=== PATIENT | male | born 1985 | race African-American/Black ===

== ENCOUNTER 2023-03-09 17:30 | Emergency (ER) | payer SELFPAY ==
--- NOTE | 2023-03-09 18:11 | EKG ---
Test Date: 2023-03-09 Test Time: 17:55:19 Varnisher: ERICK MEASUREMENT RESULTS: Intervals: Rate: 80 [place]: 160 QRSD: 78 QT: 370 QTc: 426 [place]: P: 77 [place]: 160 QRS: 64 T: 46 INTERPRETIVE STATEMENTS: Normal sinus rhythm Right atrial enlargement Borderline ECG No previous ECG available for comparison Electronically Signed On 03-09-23 18:01:48 CDT by Abel Lu
--- NOTE | 2023-03-09 18:51 | RAD REPORT ---
EXAM DESCRIPTION: Jayesh Single View03/09/2023 6:30 pm CLINICAL HISTORY: Chest pain COMPARISON: none FINDINGS: The lungs appear clear of acute infiltrate. The heart is normal size IMPRESSION: No acute abnormalities displayed
[2023-03-09 19:40] LABS: Absolute Lymphocytes (CBC) 2.5 K/uL (0.7-4.9); Hematocrit 50.9 % (39.6-49.0); Lymphocytes % 47.3 % (15.3-44.8); MCV 86.8 fL (80-100); MPV 8.1 fL (7.6-11.3); Platelets 191 thou/uL (152-406); RBC Red Blood Cell Count 5.86 M/uL (4.33-5.43)
[2023-03-09] MEDS ORDERED: MAGNES/ALUMIN/SIMET 30ML UCUP ONE (19:55)
[2023-03-09] MEDS ORDERED: KETOROLAC 30 MG/ML INJ ONE (19:55)
[2023-03-09 20:00] LABS: Bilirubin Direct 0.2 mg/dL (0-0.2); Bilirubin Indirect, Calculated 0.8 mg/dL (0.2-0.8); Magnesium 2.1 mg/dL (1.6-2.4); Potassium 3.4 mEq/L (3.5-5.1); Protein, Total 7.8 g/dL (6.4-8.2)
[2023-03-09 20:21] LABS: Protime INR 1.09
[2023-03-09] MEDS ORDERED: NA CHLORIDE 0.9% 1,000 ML ONE (20:49)
--- NOTE | 2023-03-09 21:11 | RAD REPORT ---
EXAM DESCRIPTION: CT - Chest Abd Pelvis Wo Con - 03/09/2023 8:53 pm CLINICAL HISTORY: Chest and abdominal pain. Back pain COMPARISON: None TECHNIQUE: Computed axial tomography of the chest, abdomen and pelvis was obtained. Oral contrast wa s given. IV contrast was not requested. All CT scans are performed using dose optimization technique as appropriate and may include automated exposure control or mA/KV adjustment according to patient size. FINDINGS: The evaluation of mediastinum, simon, vessels and solid organs is limited secondary to the lack of IV contrast administration The lungs are clear No mediastinal or hilar lymphadenopathy is seen. A pleural effusion is not present. A pericardial effusion is not seen. The liver, spleen, pancreas, adrenals and kidneys appear grossly normal There is no evidence of diverticulitis. Normal appendix IMPRESSION: No acute abnormality is displayed
[2023-03-09] MEDS ORDERED: POTASSIUM 25 MEQ EFFERV TAB ONE (21:47)
[2023-03-09 22:30] LABS: Specific Gravity > 1.030 (1.005-1.030); Urine Bacteria None Seen /HPF (<20); Urine Bilirubin NEGATIVE (Negative); Urine Blood Negative (Negative); Urine Clarity Turbid (Clear); Urine Color Yellow (Yellow); Urine Glucose NEGATIVE (Negative); Urine Mucus 3+ /HPF (None Seen); Urine Protein 1+ (Negative); Urine RBC <5 /HPF (None Seen); Urine Urobilinogen Normal (Normal); Urine pH 5.5 (5.0-7.0)
--- NOTE | 2023-03-09 23:15 | EDPHYS ---
Physician Documentation [facility] Name: An Lou Age: 37 yrs Sex: Male : 1985 Arrival Date: 03/09/2023 Time: 17:30 Bed Treatment Private MD: ED Physician Savanna Murry HPI: 03/09 18:00 This 37 yrs old Black Male presents to ER via Ambulatory with complaints of Chest Pain, cp Back Pain. 18:00 The patient or guardian reports chest pain that is located primarily in the substernal cp area, epigastric area. 18:00 Associated signs and symptoms: Pertinent positives: left mid back/flank pain, cp dysphagia, Pertinent negatives: cough, diaphoresis, lower extremity pain, lower extremity swelling, palpitations, shortness of breath, syncope, vomiting. The chest pain is described as a pressure. Duration: The patient or guardian reports multiple episodes, that are intermittent. Severity of pain: in the emergency department the pain is unchanged despite home interventions. Historical: - Allergies: 17:38 No Known Allergies; ll1 - PMHx: 17:38 None; ll1 - PSHx: 17:38 None; ll1 - Immunization history:: Client reports having NOT received the Covid vaccine. - Social history:: Smoking status: Patient reports the use of cigarette tobacco products, smokes one pack cigarettes per day. ROS: 18:05 Constitutional: Negative for body aches, chills, fever, poor PO intake. cp 18:05 ENT: Positive for difficulty swallowing. cp 18:05 Cardiovascular: Positive for chest pain. 18:05 Respiratory: Negative for cough, shortness of breath, wheezing. 18:05 Back: Positive for pain at rest, pain with movement, of the left subscapular area and left mid back. 18:05 Eyes: Negative for injury, pain, redness, and discharge. cp 18:05 Abdomen/GI: Negative for vomiting, diarrhea, constipation, anorexia. 18:05 : Negative for urinary symptoms, hematuria, testicular pain 18:05 Skin: Negative for rash. 18:05 Neuro: Negative for altered mental status, dizziness, headache, numbness, syncope, weakness. 18:05 All other systems are negative. cp Exam: 18:05 ECG was reviewed by the Attending Physician. cp 18:10 Constitutional: The patient appears in no acute distress, alert, awake, comfortable, cp non-diaphoretic, non-toxic, well developed, well nourished. 18:10 Head/Face: Normocephalic, atraumatic. cp 18:10 Eyes: Periorbital structures: appear normal, Conjunctiva: normal, no exudate, no injection, Sclera: no appreciated abnormality, Lids and lashes: appear normal, bilaterally. 18:10 ENT: External ear(s): are unremarkable, Nose: is normal, Mouth: Lips: moist, Oral mucosa: pink and intact, moist, Posterior pharynx: is normal, airway is patent, no erythema, no exudate. 18:10 Neck: ROM/movement: is normal, is supple, without pain, no range of motions limitations. 18:10 Chest/axilla: Inspection: normal, Palpation: crepitus, is not appreciated, tenderness, is not appreciated. 18:10 Cardiovascular: Rate: normal, Rhythm: regular, Edema: is not appreciated, JVD: is not appreciated. 18:10 Respiratory: the patient does not display signs of respiratory distress, Respirations: normal, no use of accessory muscles, no retractions, labored breathing, is not present, Breath sounds: are clear throughout, no decreased breath sounds, no stridor, no wheezing. 18:10 Abdomen/GI: Inspection: abdomen appears normal, Palpation: abdomen is soft and non-tender, in all quadrants. 18:10 Back: pain, that is mild, of the left subscapular area and left mid back, ROM is normal. 18:10 Skin: cellulitis, is not appreciated, no rash present. 18:10 Neuro: Orientation: to person, place \T\ time. Mentation: is normal, Motor: moves all fours, strength is normal, Sensation: is normal, Gait: is steady, at a normal pace, without difficulty. Vital Signs: 17:40 BP 102 / 49; Pulse 81; Resp 17; Temp 97.2; Pulse Ox 98% ; Weight 77.11 kg; Height 5 ft. ll1 10 in. ; 19:45 BP 99 / 60; Pulse 57; Resp 16; Pulse Ox 100% ; Pain 7/10; sm8 21:19 BP 130 / 117; Pulse 50; Resp 16; Pulse Ox 100% ; Pain 1/10; sm8 22:22 BP 111 / 83; Pulse 62; Resp 16; Pulse Ox 99% on R/A; mb9 17:40 Body Mass Index 24.39 (77.11 kg, 177.8 cm) ll1 19:45 Pain Scale: Adult sm8 21:19 Pain Scale: Adult sm8 MDM: 18:00 Differential diagnosis: abnormal EKG, acute myocardial infarction, acute pericarditis, cp chest wall pain, pericarditis, pleurisy, pneumonia, pneumothorax, pulmonary embolus, kidney stone, uti. 18:03 Patient medically screened. cp 23:12 Data reviewed: vital signs, nurses notes. cp 23:13 Counseling: I had a detailed discussion with the patient and/or guardian regarding the historical points, exam findings, and any diagnostic results supporting the discharge/admit diagnosis, lab results, radiology results, the need for outpatient follow up, a family practitioner, to return to the emergency department if symptoms worsen or persist or if there are any questions or concerns that arise at home. 23:13 I considered the following discharge prescriptions or medication management in the emergency department Medications were administered in the Emergency Department. See MAR. Response to treatment: the patient's symptoms have markedly improved after treatment, and as a result, I will discharge patient. Special discussion: Based on the patient's history, exam, and Dx evaluation, there is no indication for emergent intervention or inpatient Tx. It is understood by the patient/guardian that if the Sx's persist or worsen they need to return immediately for re-evaluation. 03/09 17:47 Order name: Basic Metabolic Panel; Complete Time: 20:30 cp 03/09 20:30 Interpretation: Normal except: K 3.4; CRE 1.57; GFR 58. cp 03/09 17:47 Order name: CBC with Diff; Complete Time: 20:30 cp 03/09 20:31 Interpretation: Normal except: RBC 5.86; HCT 50.9; JOCELYN% 38.5; LYM% 47.3; MN% 12.5. cp 03/09 17:47 Order name: D-Dimer; Complete Time: 20:30 cp 03/09 17:47 Order name: LFT's; Complete Time: 20:30 cp 03/09 17:47 Order name: Magnesium; Complete Time: 20:30 cp 03/09 17:47 Order name: PT-INR; Complete Time: 20:30 cp 03/09 17:47 Order name: Troponin HS; Complete Time: 20:30 cp 03/09 20:31 Interpretation: Reviewed. cp 03/09 17:47 Order name: Lipase; Complete Time: 20:30 cp 03/09 21:27 Order name: Urinalysis W/Microscopic; Complete Time: 23:10 cp 03/09 23:11 Interpretation: Normal except: UCLA Turbid; Urine SG > 1.030; UPROT 1+; MUCUS 3+. cp 03/09 21:51 Order name: Troponin High Sensitivity; Complete Time: 23:10 cp 03/09 17:47 Order name: XRAY Chest (1 view); Complete Time: 20:30 cp 03/09 20:38 Order name: CT Chest Abdomen Pelvis W/O Contrast; Complete Time: 21:27 cp 03/09 17:47 Order name: EKG; Complete Time: 17:48 cp 03/09 17:47 Order name: Cardiac monitoring; Complete Time: 19:36 cp 03/09 17:47 Order name: EKG - Nurse/Tech; Complete Time: 17:56 cp 03/09 17:47 Order name: IV Saline Lock; Complete Time: 19:36 cp 03/09 17:47 Order name: Labs collected and sent; Complete Time: 19:36 cp 03/09 17:47 Order name: O2 Per Protocol; Complete Time: 19:36 cp 03/09 17:47 Order name: O2 Sat Monitoring; Complete Time: 19:36 cp 03/09 22:10 Order name: Vital Signs; Complete Time: 22:12 cp EC:05 Rate is 80 beats/min. Rhythm is regular. IN interval is normal. QRS interval is normal. cp QT interval is normal. T waves are Inverted in lead aVR. Interpreted by me. Reviewed by me. Administered Medications: 19:49 Drug: GI Cocktail without - (Maalox PO Suspension 30 ml, Lidocaine Mucous mb9 Membrane Liquid 2 % 15 ml) Route: PO; 20:40 Follow up: Response: No adverse reaction mb9 19:49 Drug: Ketorolac IVP 15 mg Route: IVP; Site: left antecubital; mb9 20:40 Follow up: Response: No adverse reaction mb9 20:40 Drug: NS 0.9% IV 1000 ml Route: IV; Rate: 1 bolus; Site: left antecubital; mb9 22:22 Follow up: Response: No adverse reaction; IV Status: Completed infusion mb9 21:40 Drug: Potassium PO Effervescent Tablet 25 mEq Route: PO; mb9 22:12 Follow up: Response: No adverse reaction mb9 Disposition: 21:29 Co-signature as Attending Physician, Savanna Murry MD I agree with the assessment and cp3 plan of care. Disposition Summary: 03/09/23 23:14 Discharge Ordered Location: Home cp Problem: new cp Symptoms: have improved cp Condition: Stable cp Diagnosis - Chest pain, unspecified cp - Dorsalgia, unspecified cp - Abnormal results of kidney function studies cp Followup: cp - With: Private Physician - When: 1 - 2 days - Reason: Recheck today's complaints Discharge Instructions: - Acute Back Pain, Adult cp - Nonspecific Chest Pain, Adult cp - Aspirin and Your Heart cp - Form - Excuse from Work, School, or Physical Activity cp - Discharge Summary Sheet mb9 Forms: - Medication Reconciliation Form cp - Thank You Letter cp - Antibiotic Education cp - Prescription Opioid Use cp - Patient Portal Instructions cp - Leadership Thank You Letter cp - Work release form mb9 Prescriptions: - Cyclobenzaprine 10 mg Oral Tablet - take 1 tablet by ORAL route every 8 hours As needed; 20 tablet; Refills: 0, cp Product Selection Permitted Signatures: Dispatcher [employer] Savanna Salazar MD MD cp3 Julio César Moreno PA PA cp Lewis, Lynsay, RN RN ll1 Barbara Ambriz RN RN mb9
--- NOTE | 2023-03-09 23:15 | ER ---
Nurse's Notes [facility] Name: An Lou Age: 37 yrs Sex: Male : 1985 Arrival Date: 03/09/2023 Time: 17:30 Bed Treatment Private MD: Diagnosis: Chest pain, unspecified;Dorsalgia, unspecified;Abnormal results of kidney function studies Presentation: 03/09 17:38 Coronavirus screen: Client denies travel out of the [place] in the last 14 days. At this ll1 time, the client does not indicate any symptoms associated with coronavirus-19. Ebola Screen: Patient denies travel to an Ebola-affected area in the 21 days before illness onset. Initial Sepsis Screen: Does the patient meet any 2 criteria? No. Patient's initial sepsis screen is negative. Does the patient have a suspected source of infection? No. Patient's initial sepsis screen is negative. Risk Assessment: Do you want to hurt yourself or someone else? Patient reports no desire to harm self or others. 17:38 Method Of Arrival: Ambulatory ll1 17:38 Acuity: BECKY 3 ll1 17:39 Coronavirus screen: Vaccine status: Patient reports receiving the 2nd dose of the covid ll1 vaccine. 17:40 Chief complaint: Patient states: L sided back for 10 days. Pain to mid chest when ll1 swallowing foods/fluids for 3 days. Onset of symptoms was February 27, 2023. Historical: - Allergies: 17:38 No Known Allergies; ll1 - PMHx: 17:38 None; ll1 - PSHx: 17:38 None; ll1 - Immunization history:: Client reports having NOT received the Covid vaccine. - Social history:: Smoking status: Patient reports the use of cigarette tobacco products, smokes one pack cigarettes per day. Screenin:37 [facility] ED Fall Risk Assessment (Adult) History of falling in the last 3 months, mb9 including since admission No falls in past 3 months (0 pts) Confusion or Disorientation No (0 pts) Intoxicated or Sedated No (0 pts) Impaired Gait No (0 pts) Mobility Assist Device Used No (0 pt) Altered Elimination No (0 pt) Score/Fall Risk Level 0 - 2 = Low Risk Oriented to surroundings, Maintained a safe environment, Educated pt \T\ family on fall prevention, incl call for assistance when getting out of bed. Abuse screen: Denies threats or abuse. Nutritional screening: No deficits noted. Tuberculosis screening: No symptoms or risk factors identified. Assessment: 19:38 Reassessment: pt brought back to ER room. mb9 19:49 General: Appears in no apparent distress. Behavior is calm, cooperative. Pain: mb9 Complains of pain in back Pain does not radiate. Pain currently is 0 out of 10 on a pain scale. Quality of pain is described as aching, Pain began suddenly, Is intermittent, Aggravated by increased activity, repositioning. Neuro: Cruz Agitation-Sedation Scale (RASS): 0 - Alert and Calm Level of Consciousness is awake, alert, obeys commands, Oriented to person, place, time, situation, Appropriate for age. Cardiovascular: Patient's skin is warm and dry. Cardiovascular: Denies chest pain. Respiratory: Airway is patent Respiratory effort is even, unlabored, Respiratory pattern is regular, symmetrical. GI: Abdomen is flat, non-distended, Bowel sounds present X 4 quads. Abd is soft and non tender X 4 quads. : Denies burning with urination, pain. EENT: No signs and/or symptoms were reported regarding the EENT system. Derm: Skin is pink, warm \T\ dry. Musculoskeletal: Range of motion: intact in all extremities. 20:45 Reassessment: Patient and/or family updated on plan of care and expected duration. Pain mb9 level reassessed. Patient is alert, oriented x 3, equal unlabored respirations, skin warm/dry/pink. Patient states feeling better. Patient states symptoms have improved. 21:56 Reassessment: No changes from previously documented assessment. Patient and/or family mb9 updated on plan of care and expected duration. Pain level reassessed. Patient is alert, oriented x 3, equal unlabored respirations, skin warm/dry/pink. Vital Signs: 17:40 BP 102 / 49; Pulse 81; Resp 17; Temp 97.2; Pulse Ox 98% ; Weight 77.11 kg; Height 5 ft. ll1 10 in. ; 19:45 BP 99 / 60; Pulse 57; Resp 16; Pulse Ox 100% ; Pain 7/10; sm8 21:19 BP 130 / 117; Pulse 50; Resp 16; Pulse Ox 100% ; Pain 1/10; sm8 22:22 BP 111 / 83; Pulse 62; Resp 16; Pulse Ox 99% on R/A; mb9 17:40 Body Mass Index 24.39 (77.11 kg, 177.8 cm) ll1 19:45 Pain Scale: Adult sm8 21:19 Pain Scale: Adult sm8 ED Course: 17:32 Patient arrived in ED. rg4 17:35 Julio César Moreno PA is PHCP. cp 17:35 Savanna Murry MD is Attending Physician. cp 17:37 Arm band placed on. ll1 17:38 Triage completed. ll1 18:32 XRAY Chest (1 view) In Process Unspecified. EDMS 19:34 Inserted saline lock: 22 gauge in left antecubital area, using aseptic technique. Blood sm8 collected. 19:36 Basic Metabolic Panel Sent. mb9 19:36 CBC with Diff Sent. mb9 19:36 D-Dimer Sent. mb9 19:36 LFT's Sent. mb9 19:36 Magnesium Sent. mb9 19:36 PT-INR Sent. mb9 19:36 Troponin HS Sent. mb9 19:37 Placed in gown. Bed in low position. Call light in reach. Side rails up X 1. Client mb9 placed on continuous cardiac and pulse oximetry monitoring. NIBP monitoring applied. bus monitor on. 19:42 Barbara Ambriz, RN is Primary Nurse. mb9 19:50 No provider procedures requiring assistance completed. Patient maintains SpO2 mb9 saturation greater than 95% on room air. 20:55 CT Chest Abdomen Pelvis W/O Contrast In Process Unspecified. EDMS 22:22 Troponin High Sensitivity Sent. mb9 22:22 Urinalysis W/Microscopic Sent. mb9 23:14 IV discontinued, intact, bleeding controlled, No redness/swelling at site. Pressure mb9 dressing applied. Administered Medications: 19:49 Drug: GI Cocktail without - (Maalox PO Suspension 30 ml, Lidocaine Mucous mb9 Membrane Liquid 2 % 15 ml) Route: PO; 20:40 Follow up: Response: No adverse reaction mb9 19:49 Drug: Ketorolac IVP 15 mg Route: IVP; Site: left antecubital; mb9 20:40 Follow up: Response: No adverse reaction mb9 20:40 Drug: NS 0.9% IV 1000 ml Route: IV; Rate: 1 bolus; Site: left antecubital; mb9 22:22 Follow up: Response: No adverse reaction; IV Status: Completed infusion mb9 21:40 Drug: Potassium PO Effervescent Tablet 25 mEq Route: PO; mb9 22:12 Follow up: Response: No adverse reaction mb9 Medication: 19:50 VIS not applicable for this client. mb9 Outcome: 23:14 Discharge ordered by . bogdan 23:27 Discharged to home ambulatory. mb9 23:27 Condition: stable 23:27 Discharge instructions given to patient, Instructed on discharge instructions, follow up and referral plans. Demonstrated understanding of instructions, follow-up care, medications, Prescriptions given X 1. 23:27 Patient left the ED. mb9 Signatures: Dispatcher [employer] EDMS Julio César Moreno PA PA cp Garcia, Rubi rg4 Morena Hernández RN RN ll1 Barbara Ambriz RN RN mb9 Deandra [id number]
[2023-03-09 23:41] VITALS: TEMP 97.2
[2023-03-09 23:54] VITALS: BP 111/83; O2SAT 99
== END 2023-03-09 23:27 | disposition home or self-care (01) ==
LOC: ER 17:30
DX: R07.9 Chest pain, unspecified (principal); M54.9 Dorsalgia, unspecified; R94.4 Abnormal results of kidney function studies
CPT/HCPCS: 36415; 71045; 71250; 74176; 80048; 80076; 81001; 83690; 83735; 84484; 85025; 85379; 85610; 93005; 96361; 96374; 99285; J7030